=== PATIENT | male | born 1970 | race African-American/Black ===

== ENCOUNTER 2018-01-30 11:30 | Emergency (ER) | payer OTHER ==
--- NOTE | 2018-01-30 11:44 | NUR ---
Patient does not wish to proceed with medical care recommended by Dr. MONTEMAYOR. Patient given information related to possible complications, up to and including , which could occur as a result of leaving the hospital at this time. Patient verbalizes understanding of risks involved due to leaving against medical advice. Patient has signed AMA form.
== END 2018-01-30 11:45 | disposition left against medical advice (07) ==
LOC: ER 11:38
DX: Z53.21 Procedure and treatment not carried out due to patient leaving prior to being seen by health care provider (principal)

== ENCOUNTER 2018-08-04 15:26 | Emergency (ER) | payer OTHER ==
[~2018-08-04] VITALS: Ht 177.8 cm; Wt 93.0 kg
--- NOTE | 2018-08-04 15:50 | NUR ---
aaox3, c/o n/v x 2 days , generalized pain and aches states "I have no place to go and I want to be admitted for observation". rr is even and unlabored with nad noted. skin is warm and dry. awaiting md for eval.
[2018-08-04] MEDS ORDERED: ONDANSETRON HCL/PF 4 MG/2 ML VIAL ONE (16:10)
[2018-08-04] MEDS: ONDANSETRON HCL/PF 4 MG/2 ML VIAL IVP ONE (16:15)
[2018-08-04] MEDS: IV NS 0.9% 1,000 ML BAG IV ONE (16:15)
[2018-08-04 16:18] LABS: BASOPHILS % (AUTO) 0.2 % (0.0-2.0); HEMATOCRIT 41 % (39-51); HEMOGLOBIN 13.8 g/dL (13.5-17.5); LYMPHOCYTES # (AUTO) 0.2 /CMM (0.8-4.8); LYMPHOCYTES % (AUTO) 3.4 % (20.0-44.0); MEAN CORPUSCULAR HGB CONC 33 g/dl (31.0-36.0); MEAN CORPUSCULAR VOLUME 77 fL (80-96); MONOCYTES # (AUTO) 0.2 /CMM (0.1-1.30); MONOCYTES % (AUTO) 3.3 % (2.0-12.0); NEUTROPHILS # (AUTO) 6.8 /CMM (1.8-8.9); NEUTROPHILS % (AUTO) 93.1 % (43.0-81.0); PLATELET COUNT (AUTO) 252 /CMM (150-450); RED BLOOD CELL COUNT(AUTO) 5.38 MIL/uL (4.5-6.0); WHITE BLOOD COUNT (AUTO) 7.3 K/uL (4.3-11.0)
[2018-08-04 16:26] LABS: CALCIUM, SERUM 8.8 mg/dL (8.5-10.1); CREATININE 1.2 mg/dL (0.6-1.3); POTASSIUM 3.9 mmol/L (3.5-5.1)
[2018-08-04 16:31] LABS: ALBUMIN 3.9 g/dL (3.4-5.0); BILIRUBIN,DIRECT 0.1 mg/dL (0.0-0.2); BILIRUBIN,TOTAL 0.4 mg/dL (0.2-1.0); TOTAL PROTEIN, SERUM 8.1 g/dL (6.4-8.2)
--- NOTE | 2018-08-04 16:55 | NUR ---
Social service consult requested by Dr. Leach for homelessness. Pt. is a 48 year old male who came to [facility] ER complaining of nausea and stomachache. AYDIN met with pt. bedside. Pt. is alert and oriented x 4. Pt. is cooperative and pleasant with SW during the assessment. Pt. states he was at [facility] but left due to having food poisoning. Pt. states that, " I have been poisoned [facility] the [facility] the [facility]." Pt. does not want to go back to [facility] the [facility] at this time. Pt. has been homeless for approximately two years since the of his father. Pt. appears to be paranoid and states he wants to stay in the hospital for "observation." AYDIN informed pt. that the doctor has medically cleared him and SW is here to assist with the discharge plan. Pt. has his own car and has been sleeping in his car at times. Pt. is linked to services at [facility] and [facility] and has his section 8 voucher. Pt. states he has his SSI in the amount of $931.00. AYDIN offered pt. list of sober livings per his request and independent living. AYDIN gave him the contact number for [facility] and encouraged pt. to call while SW is present. Pt. informed SW he will call once he leaves that hospital. Pt. states he is able to afford $600 per month in rent. AYDIN also gave pt. list of [facility] [phone] that have shelters outside of [facility]. Pt. accepted all the given resources. Pt. signed Homeless patient Waiver form. Copy of form is placed in the chart. AYDIN updated pt's DEMETRIUS Herrmann and Dr. Leach regarding pt's discharge plan.
[2018-08-04] MEDS ORDERED: KETOROLAC TROMETHAMINE INJ 30 MG/ML VIAL ONE (17:15)
[2018-08-04] MEDS: KETOROLAC TROMETHAMINE INJ 30 MG/ML VIAL IV ONE (17:23)
--- NOTE | 2018-08-04 17:30 | NUR ---
IV removed. Catheter intact and site benign. Pressure and 4x4 applied to site. No bleeding noted.Patient discharged to home in stable condition. Written and verbal after care instructions given. Patient verbalizes understanding of instruction.
[2018-08-04 17:32] VITALS: BP 145/91
== END 2018-08-04 17:33 | disposition home or self-care (01) ==
LOC: ER 15:27
DX: B34.9 Viral infection, unspecified (principal); E86.0 Dehydration; R11.2 Nausea with vomiting, unspecified; R10.10 Upper abdominal pain, unspecified; I10 Essential (primary) hypertension; Z59.0 Homelessness
CPT/HCPCS: 36415; 80048-TC; 80076-TC; 83690-TC; 85025-TC; 87400; G0480; J1885; J2405; J7030

== ENCOUNTER 2018-09-21 10:42 | Emergency (ER) | payer OTHER ==
[~2018-09-21] VITALS: Ht 177.8 cm; Wt 86.2 kg
--- NOTE | 2018-09-21 11:00 | NUR ---
patient presented to the ER c/o lip swelling since last night. on room air, breathing evenly and unlabored. connected to the monitor, and pulse ox. kept comfortable, will continue to monitor accordingly.
[2018-09-21] MEDS ORDERED: predniSONE 20 MG TABLET PO ONE (11:30)
[2018-09-21] MEDS ORDERED: diphenhydrAMINE HCL 25 MG CAPSULE PO ONE (11:30)
[2018-09-21] MEDS ORDERED: FAMOTIDINE (20 MG) 20 MG TABLET PO ONE (11:30)
[2018-09-21] MEDS ORDERED: predniSONE 20 MG TABLET ONE (11:37)
[2018-09-21] MEDS ORDERED: FAMOTIDINE (20 MG) 20 MG TABLET ONE (11:37)
[2018-09-21] MEDS ORDERED: diphenhydrAMINE HCL 25 MG CAPSULE ONE (11:37)
--- NOTE | 2018-09-21 12:05 | NUR ---
PATIENT IN BED, NAD, VSS. LIPS STILL SWOLLEN. WILL CONTINUE TO MONITOR.
--- NOTE | 2018-09-21 12:26 | NUR ---
Patient discharged to home in stable condition. Written and verbal after care instructions given. Patient verbalizes understanding of instruction.
[2018-09-21 12:28] VITALS: BP 157/89
== END 2018-09-21 12:36 | disposition home or self-care (01) ==
LOC: ER 10:47
DX: T78.3XXA Angioneurotic edema, initial encounter (principal); T46.4X5A Adverse effect of angiotensin-converting-enzyme inhibitors, initial encounter; I10 Essential (primary) hypertension
CPT/HCPCS: Q0163

== ENCOUNTER 2018-09-28 12:15 | Emergency (ER) | payer OTHER ==
[~2018-09-28] VITALS: Ht 177.8 cm; Wt 86.2 kg
--- NOTE | 2018-09-28 12:23 | NUR ---
CALLED FOR TRIAGE NOT IN THE WAITING ROOM.
--- NOTE | 2018-09-28 12:50 | NUR ---
PT BIB SELF C/O BACK PAIN WORST TODAY 9/10 PAIN SCALE, PT IS AAOX3, NOT IN RESPIRATORY DISTRESS, V/S STABLE, KEPT RESTED AND COMFORTABLE.
--- NOTE | 2018-09-28 13:59 | NUR ---
REFERED PT TO DR. HERNANDEZ PT IS WAITING FOR 2 HRS AT ER BED 9.
[2018-09-28] MEDS ORDERED: IV NS 0.9% 1,000 ML BAG IV ONE (14:30)
--- NOTE | 2018-09-28 14:30 | NUR ---
URINE SPECIMEN COLLECTED AND SENT TO LAB.
--- NOTE | 2018-09-28 14:35 | NUR ---
DR. NOGUERA AT BEDSIDE FOR EVAL.
--- NOTE | 2018-09-28 14:40 | NUR ---
IV LINE ESTABLISHED, LABS DRAWNED AND SENT TO LAB. AWAITING RESULTS.
[2018-09-28 14:41] LABS: BASOPHILS % (AUTO) 0.5 % (0.0-2.0); EOSINOPHILS % (AUTO) 0.9 % (0.0-6.0); HEMATOCRIT 43 % (39-51); HEMOGLOBIN 14.3 g/dL (13.5-17.5); LYMPHOCYTES # (AUTO) 1.5 /CMM (0.8-4.8); LYMPHOCYTES % (AUTO) 22.7 % (20.0-44.0); MEAN CORPUSCULAR HGB CONC 33 g/dl (31.0-36.0); MEAN CORPUSCULAR VOLUME 78 fL (80-96); MONOCYTES # (AUTO) 0.5 /CMM (0.1-1.30); MONOCYTES % (AUTO) 7.3 % (2.0-12.0); NEUTROPHILS # (AUTO) 4.4 /CMM (1.8-8.9); NEUTROPHILS % (AUTO) 68.6 % (43.0-81.0); PLATELET COUNT (AUTO) 274 /CMM (150-450); WHITE BLOOD COUNT (AUTO) 6.5 K/uL (4.3-11.0)
[2018-09-28 14:47] LABS: APPEARANCE,URINE Clear (CLEAR); BILIRUBIN,URINE SMALL (NEGATIVE); BLOOD, URINE Negative Ery/uL (NEGATIVE); COLOR,URINE Yellow (YELLOW); KETONES,URINE Trace (NEGATIVE); LEUKOCYTE ESTERASE ,URINE Negative (NEGATIVE); NITRITE, URINE Negative (NEGATIVE); PH,URINE 5.5 (5.0-8.0); PROTEIN,URINE Trace mg/dl (NEGATIVE); UGLUCOSE Negative (NEGATIVE); UROBILINOGEN,URINE 0.2 EU/dL (0.2)
[2018-09-28 14:56] LABS: ALBUMIN 4.4 g/dL (3.4-5.0); BACTERIA,URINE Few /HPF (None Seen); BILIRUBIN,DIRECT 0.1 mg/dL (0.0-0.2); BILIRUBIN,TOTAL 0.5 mg/dL (0.2-1.0); CALCIUM, SERUM 9.5 mg/dL (8.5-10.1); POTASSIUM 3.9 mmol/L (3.5-5.1); RBC,URINE 0-3 /HPF (0-2); SQUAMOUS EPITHELIAL CELL,UR Moderate /HPF (None Seen); TOTAL PROTEIN, SERUM 8.2 g/dL (6.4-8.2)
--- NOTE | 2018-09-28 15:16 | NUR ---
PT IS BACK FROM THE CT SCAN.
[2018-09-28 15:18] LABS: CREATINE KINASE, TOTAL 208 U/L (39-308); THYROID STIMULATING HORMONE 1.437 uIU/mL (0.358-3.74)
[2018-09-28 15:48] LABS: ALCOHOL, BLOOD < 3 mg/dL (0-0)
[2018-09-28] MEDS ORDERED: CEFTRIAXONE 1GM BAG (ER ONLY) 1 GM/50 ML PIGGYBACK IV ONE (16:30)
[2018-09-28] MEDS ORDERED: CEFTRIAXONE 1GM BAG (ER ONLY) 50 ML IV ONE (16:42)
[2018-09-28] MEDS ORDERED: hydrALAZINE HCL IV 20 MG VIAL IV ONE (18:30)
[2018-09-28] MEDS ORDERED: hydrALAZINE HCL IV 20 MG VIAL ONE (18:39)
--- NOTE | 2018-09-28 18:48 | NUR ---
PT IS MEDICALLY CLEARED BY DR. NOGUERA, AWAITING CAFETERIA MANAGER FOR RESOURCES.
--- NOTE | 2018-09-28 19:38 | NUR ---
REPORT GIVEN TO DEMETRIUS PRITCHETT FOR TONI.
--- NOTE | 2018-09-28 19:39 | NUR ---
RECEIVED REPORT FROM DEMETRIUS ANN FOR TONI. PT RESTING IN BED WITH NO S/S OF ACUTE DISTRESS NOTED
--- NOTE | 2018-09-28 21:38 | NUR ---
Patient discharged to home in stable condition. Written and verbal after care instructions given. Patient verbalizes understanding of instruction.IV removed. Catheter intact and site benign. Pressure and 4x4 applied to site. No bleeding noted. PT WAS INFORMED TO AWAIT GEOCHEMIST IN THE WAITING ROOM. MD AWARE. PT VERBALIZED UNDERSTAING AND AMBULATED OUT TO WAITING ROOM WITH STEADY GAIT NOTED.
[2018-09-28 21:40] VITALS: BP 144/88
--- NOTE | 2018-09-29 08:34 | NUR ---
AYDIN received a call from Rola in admitting informing AYDIN that a pt. that was discharged from ED is awaiting for a SW. AYDIN met with pt. in the lobby. Pt. is alert and oriented x 4. Pt. came to ED requesting to speak with AYDIN. Pt. is ambulatory with a steady gait. Pt. requested with AYDIN if she can assist him with paying for his parking ticket. AYDIN informed pt. that she is not able to do that. Pt. states he is linked with services with [facility]. Pt. is homeless. AYDIN informed pt. to speak with his manager wind at [facility] to inquire if he can assist with the ticket. Pt. requested for AYDIN to contact Elijah at [facility]. AYDIN contacted [facility] and asked to speak with Elijah. AYDIN was informed that Elijah was not in the office as of yet. AYDIN informed pt. to go to [facility] directly and speak with his manager wind. Pt's manager wind is currently assisting pt. in getting into a transitional housing program. Pt. was given [facility], [facility] Homeless Resource Directory, Mental health and health clinic referrals in the ED prior to his discharge last night.
== END 2018-09-28 21:42 | disposition home or self-care (01) ==
LOC: ER 12:16
DX: M54.9 Dorsalgia, unspecified (principal); R41.82 Altered mental status, unspecified; I10 Essential (primary) hypertension; F12.10 Cannabis abuse, uncomplicated; Z59.0 Homelessness
CPT/HCPCS: 36415; 70450; 71045; 74176; 80048; 80076; 80305; 80307; 80329; 81001; 82550; 82962; 83690; 84443; 84484; 85025; 85730; 87086; 93005; 96361; 96365; 96367; 99284; A4606; G0480; J0360; J0696; 81000-TC

== ENCOUNTER 2018-10-05 07:17 | Emergency (ER) | payer OTHER ==
[~2018-10-05] VITALS: Ht 170.2 cm; Wt 89.8 kg
--- NOTE | 2018-10-05 07:30 | NUR ---
PT SELF PRESENTS TO ED, ANXIOUS APPEARING STATING, "I CANT WALK AND I FEEL LIKE IM HAVING A HEART ATTACK" PT GOWNED AND PLACED ON MONITOR. NSR ON 3 LEADS. AWAITING MD VARGAS.
--- NOTE | 2018-10-05 07:33 | NUR ---
DR GARSIA AT BEDSIDE FOR EVAL.
[2018-10-05] MEDS ORDERED: ASPIRIN 325 MG TABLET ONE (07:36)
[2018-10-05] MEDS ORDERED: ASPIRIN 325 MG TABLET PO ONE (08:00)
--- NOTE | 2018-10-05 08:53 | NUR ---
PT STILL REFUSING TO HAVE HIS BLOOD DRAWN.
--- NOTE | 2018-10-05 08:57 | NUR ---
CELL RELINER AT BEDSIDE FOR BLOOD DRAW.
[2018-10-05 09:06] LABS: BASOPHILS % (AUTO) 0.5 % (0.0-2.0); EOSINOPHILS % (AUTO) 0.5 % (0.0-6.0); HEMATOCRIT 43 % (39-51); LYMPHOCYTES # (AUTO) 1.2 /CMM (0.8-4.8); LYMPHOCYTES % (AUTO) 23.3 % (20.0-44.0); MEAN CORPUSCULAR HGB CONC 33 g/dl (31.0-36.0); MEAN CORPUSCULAR VOLUME 77 fL (80-96); MONOCYTES # (AUTO) 0.3 /CMM (0.1-1.30); MONOCYTES % (AUTO) 5.3 % (2.0-12.0); NEUTROPHILS # (AUTO) 3.6 /CMM (1.8-8.9); NEUTROPHILS % (AUTO) 70.4 % (43.0-81.0); PLATELET COUNT (AUTO) 248 /CMM (150-450); RED BLOOD CELL COUNT(AUTO) 5.55 MIL/uL (4.5-6.0); WHITE BLOOD COUNT (AUTO) 5.2 K/uL (4.3-11.0)
[2018-10-05] MEDS ORDERED: LORAZEPAM 1 MG TABLET ONE (09:08)
[2018-10-05 09:14] LABS: CALCIUM, SERUM 9.5 mg/dL (8.5-10.1); CARBON DIOXIDE 27 mmol/L (21-32); CHLORIDE 103 mmol/L (98-107); GLUCOSE 93 mg/dL (74-106); POTASSIUM 3.5 mmol/L (3.5-5.1); SODIUM SERUM 139 mmol/L (136-145); UREA NITROGEN, BLOOD 11 mg/dL (7-18)
[2018-10-05] MEDS ORDERED: LORAZEPAM 1 MG TABLET PO ONE (09:30)
[2018-10-05 09:56] LABS: LYMPHOCYTES % (MANUAL) 24 % (16-48); MONOCYTES % (MANUAL) 10 % (0-11.0); NEUTROPHILS % (MANUAL) 66 (42-76)
--- NOTE | 2018-10-05 11:34 | NUR ---
PT IS MEDICALLY AND PSYCH CLEARED. REFUSING TO SIGN AND LEAVE ED. PT ESCORTED BY SECURITY TO WAITING ROOM.
[2018-10-05 12:02] VITALS: BP 146/99
== END 2018-10-05 11:45 | disposition home or self-care (01) ==
LOC: ER 07:18
DX: R07.89 Other chest pain (principal); F29 Unspecified psychosis not due to a substance or known physiological condition; I10 Essential (primary) hypertension; F12.10 Cannabis abuse, uncomplicated
CPT/HCPCS: 36415; 71045; 80048; 80305; 84484; 85025; 93005; 99284; A4606

== ENCOUNTER 2018-11-29 01:22 | Emergency (ER) | payer OTHER ==
[~2018-11-29] VITALS: Ht 177.8 cm; Wt 86.6 kg
--- NOTE | 2018-11-29 01:26 | NUR ---
TO ER BED 4. WHEELED IN BY WHEELCHAIR. AAOX2. TACHYPNEIC. CAME IN FOR C/O CHEST PAIN 05/11 PT STATES THAT THE PAIN IS RADIATING TO HIS HEAD. HE ALSO STATES THAT HE IS DIZZY AND FEELS THAT HE WAS POISONED. PT STATES THAT HE VOMITTED ONCE BEFORE COMING IN TO THE HOSPITAL. AT BEDSIDE FOR SAM.
[2018-11-29] MEDS ORDERED: NITROGLYCERIN PACKET 1 GM PACKET ONE (01:40)
[2018-11-29] MEDS ORDERED: ASPIRIN 81 MG TAB.CHEW ONE (01:40)
[2018-11-29] MEDS ORDERED: LORAZEPAM 1 MG TABLET ONE (01:40)
--- NOTE | 2018-11-29 01:49 | NUR ---
TECH AT BEDSIDE FOR EKG
--- NOTE | 2018-11-29 01:52 | NUR ---
CURRICULUM DIRECTOR AT [facility] FOR BLOOD DRAW
[2018-11-29] MEDS ORDERED: oxyCODONE/APAP (5/325 MG) 1 UDTAB TABLET ONE (01:55)
[2018-11-29] MEDS ORDERED: oxyCODONE/APAP (5/325 MG) 1 UDTAB TABLET PO ONE (02:00)
[2018-11-29] MEDS ORDERED: LORAZEPAM 1 MG TABLET PO ONE (02:00)
[2018-11-29] MEDS ORDERED: ASPIRIN 81 MG TAB.CHEW PO ONE (02:00)
[2018-11-29] MEDS ORDERED: NITROGLYCERIN PACKET 1 GM PACKET TD ONE (02:00)
[2018-11-29 02:05] LABS: BASOPHILS % (AUTO) 0.4 % (0.0-2.0); EOSINOPHILS % (AUTO) 0.8 % (0.0-6.0); HEMATOCRIT 38 % (39-51); HEMOGLOBIN 12.4 g/dL (13.5-17.5); LYMPHOCYTES # (AUTO) 1.4 /CMM (0.8-4.8); LYMPHOCYTES % (AUTO) 20.5 % (20.0-44.0); MEAN CORPUSCULAR HGB CONC 33 g/dl (31.0-36.0); MEAN CORPUSCULAR VOLUME 77 fL (80-96); MONOCYTES # (AUTO) 0.4 /CMM (0.1-1.30); MONOCYTES % (AUTO) 6.4 % (2.0-12.0); NEUTROPHILS # (AUTO) 4.8 /CMM (1.8-8.9); NEUTROPHILS % (AUTO) 71.9 % (43.0-81.0); PLATELET COUNT (AUTO) 246 /CMM (150-450); RED BLOOD CELL COUNT(AUTO) 4.95 MIL/uL (4.5-6.0); WHITE BLOOD COUNT (AUTO) 6.7 K/uL (4.3-11.0)
--- NOTE | 2018-11-29 02:09 | NUR ---
XRAY AT BEDSIDE
[2018-11-29 02:13] LABS: ALANINE AMINOTRANSFERASE 19 U/L (12-78); ALBUMIN 3.7 g/dL (3.4-5.0); ALKALINE PHOSPHATASE 71 U/L (46-116); ASPARTATE AMINOTRANSFERASE 15 U/L (15-37); BILIRUBIN,DIRECT 0.1 mg/dL (0.0-0.2); BILIRUBIN,TOTAL 0.3 mg/dL (0.2-1.0); CALCIUM, SERUM 8.6 mg/dL (8.5-10.1); CARBON DIOXIDE 29 mmol/L (21-32); CHLORIDE 106 mmol/L (98-107); CREATININE 1.1 mg/dL (0.6-1.3); GLUCOSE 118 mg/dL (74-106); POTASSIUM 3.5 mmol/L (3.5-5.1); SODIUM SERUM 142 mmol/L (136-145); UREA NITROGEN, BLOOD 14 mg/dL (7-18)
--- NOTE | 2018-11-29 02:41 | NUR ---
CALLED [facility]: CXR
--- NOTE | 2018-11-29 02:54 | NUR ---
PT STATES THAT HIS CHEST PAIN IN GONE. PT IS STILL COMPLAINING OF HEADACHE.
--- NOTE | 2018-11-29 04:20 | NUR ---
APARTMENT LEASING CONSULTANT AT [facility] FOR BLOOD DRAW
--- NOTE | 2018-11-29 04:30 | NUR ---
PT SLEEPING IN BED. EASILY ARROUSED BY VERBAL STIMULI. NO DISTRESS NOTED.
[2018-11-29 05:41] VITALS: BP 126/60
--- NOTE | 2018-11-29 05:44 | NUR ---
PT DOES NOT REQUIRE TAP CARD, PT HAS OWN VEHICLE
--- NOTE | 2018-11-29 05:45 | NUR ---
Patient discharged to home in stable condition. Written and verbal after care instructions given. Patient verbalizes understanding of instruction.
--- NOTE | 2018-11-29 05:46 | NUR ---
PT IS HOMELESS. WAIVER IS SIGNED. PT IS IN LOBBY WAITING FOR BINDERY HELPER.
--- NOTE | 2018-11-29 11:39 | NUR ---
Social service consult requested by discharged pt. Pt. initially visited the ER in the morning for chest pain and was then discharged. SW was notified that pt. was in the ER waiting room requesting a consult at 10:18am. SW met with former pt. in the ER waiting room. Pt. was alert and oriented x 4. Pt. is requesting further housing services. Pt. states he has received transitional housing services from [facility] [id number]. [place], [place] [id number] , [facility] [address] [address], and [facility] [address] [place], [place] [address] . Former pt. states that he has a Section 8 voucher for low-income housing. Former pt. is requesting permanent housing referrals. SW provided former pt. with housing agencies to help him with placement, including [facility] at [address] [place] [address] ( . Former pt. states that he was working with a graphic specialist at [facility] that was providing on-going case management support, but stopped once he was no longer a transitional housing resident. SW encouraged former pt. to call [facility] and reconnect with his manager ed. Former pt. called [facility] while SW was present and spoke with the Chief Impact Officer Walter Hickey. Walter Hickey was receptive to former pt. and sounded accounted with him. No other services requested by former pt. at this time. housekeeper/custodian/laundry worker provided the following homeless alf referral to client, if needed in the future: [facility] [address] [place], [place] [address] . [facility] [address] [place] [address] . And the [facility] Homeless Resource Directory. Per ER notes, homeless waiver was signed by pt. prior to discharge. No other services needed at this time. SW is available if needed.
== END 2018-11-29 05:47 | disposition home or self-care (01) ==
LOC: ER 01:23
DX: R07.89 Other chest pain (principal); I10 Essential (primary) hypertension
CPT/HCPCS: 36415; 71045-TC; 80048-TC; 80076-TC; 84484-TC; 85025-TC

== ENCOUNTER 2018-11-29 15:13 | Emergency (ER) | payer OTHER ==
[~2018-11-29] VITALS: Ht 177.8 cm; Wt 87.5 kg
--- NOTE | 2018-11-29 16:20 | NUR ---
RN NOTES PATIENT RECIEVED AWAKE ALERT AND VERBALLY RESPONSIVE, ABLE TO MAKE NEEDS KNOWN, RESPIRATIONS EVEN AND UNLABORED
[2018-11-29 17:06] LABS: BASOPHILS % (AUTO) 0.2 % (0.0-2.0); EOSINOPHILS % (AUTO) 0.5 % (0.0-6.0); HEMATOCRIT 38 % (39-51); HEMOGLOBIN 12.5 g/dL (13.5-17.5); LYMPHOCYTES # (AUTO) 1.2 /CMM (0.8-4.8); LYMPHOCYTES % (AUTO) 20.8 % (20.0-44.0); MEAN CORPUSCULAR HGB CONC 33 g/dl (31.0-36.0); MEAN CORPUSCULAR VOLUME 77 fL (80-96); MONOCYTES # (AUTO) 0.3 /CMM (0.1-1.30); NEUTROPHILS # (AUTO) 4.1 /CMM (1.8-8.9); NEUTROPHILS % (AUTO) 72.5 % (43.0-81.0); PLATELET COUNT (AUTO) 235 /CMM (150-450); RED BLOOD CELL COUNT(AUTO) 4.92 MIL/uL (4.5-6.0); WHITE BLOOD COUNT (AUTO) 5.6 K/uL (4.3-11.0)
[2018-11-29 17:25] LABS: CALCIUM, SERUM 8.6 mg/dL (8.5-10.1); CARBON DIOXIDE 30 mmol/L (21-32); CHLORIDE 105 mmol/L (98-107); GLUCOSE 91 mg/dL (74-106); POTASSIUM 3.7 mmol/L (3.5-5.1); SODIUM SERUM 141 mmol/L (136-145); UREA NITROGEN, BLOOD 12 mg/dL (7-18)
[2018-11-29 17:30] LABS: ALANINE AMINOTRANSFERASE 19 U/L (12-78); ALBUMIN 3.9 g/dL (3.4-5.0); ALKALINE PHOSPHATASE 48 U/L (46-116); ASPARTATE AMINOTRANSFERASE 13 U/L (15-37); BILIRUBIN,DIRECT 0.1 mg/dL (0.0-0.2); BILIRUBIN,TOTAL 0.3 mg/dL (0.2-1.0); TOTAL PROTEIN, SERUM 7.2 g/dL (6.4-8.2)
[2018-11-29] MEDS ORDERED: OLANZAPINE 5 MG TABLET PO ONE (18:00)
[2018-11-29] MEDS ORDERED: LORAZEPAM 1 MG TABLET PO ONE (18:00)
[2018-11-29 18:07] LABS: ACETAMINOPHEN 0 ug/ml (10-30); ALCOHOL, BLOOD < 3 mg/dL (0-0); SALICYLATE 1.4 mg/dL (2.8-20.0)
[2018-11-29] MEDS ORDERED: LORAZEPAM 1 MG TABLET ONE (18:08)
[2018-11-29] MEDS ORDERED: OLANZAPINE 5 MG TABLET ONE (18:08)
[2018-11-29 20:04] LABS: APPEARANCE,URINE Clear (CLEAR); BILIRUBIN,URINE Negative (NEGATIVE); BLOOD, URINE Negative Ery/uL (NEGATIVE); COLOR,URINE Yellow (YELLOW); KETONES,URINE Negative (NEGATIVE); LEUKOCYTE ESTERASE ,URINE Negative (NEGATIVE); NITRITE, URINE Negative (NEGATIVE); PH,URINE 5.5 (5.0-8.0); PROTEIN,URINE Negative (NEGATIVE); UGLUCOSE Negative (NEGATIVE); UROBILINOGEN,URINE 0.2 EU/dL (0.2)
--- NOTE | 2018-11-29 22:38 | NUR ---
PT OK TO DISCHARGE PER WALESKA OZUNA. Patient discharged to home in stable condition. Written and verbal after care instructions given. Patient verbalizes understanding of instruction.Patient is awake and alert to self, day, and place. Pt ambulatory with a steady gait. Patient given written and verbal discharge instructions. Refuses offer of long-term placement. Pt refusing to sign homeless waiver. Patient given list of available shelters in surrounding area.
[2018-11-29 22:53] VITALS: BP 145/92
== END 2018-11-29 22:55 | disposition home or self-care (01) ==
LOC: ER 15:17
DX: R07.89 Other chest pain (principal); G43.909 Migraine, unspecified, not intractable, without status migrainosus; I10 Essential (primary) hypertension; Z76.5 Malingerer [conscious simulation]
CPT/HCPCS: 36415; 71045; 80048; 80076; 80305; 80307; 80329; 81001; 84484; 85025; 93005; 99284; G0480; 81000-TC

== ENCOUNTER 2018-12-06 08:22 | Emergency (ER) | payer OTHER ==
[~2018-12-06] VITALS: Ht 177.8 cm; Wt 86.2 kg
--- NOTE | 2018-12-06 08:25 | NUR ---
CALLED IN WAITING ROOM, PT STATES NOT READY TO COME IN.
[2018-12-06 08:33] VITALS: BP 160/99
--- NOTE | 2018-12-06 09:58 | NUR ---
COMMISSIONED DEFENCE FORCE OFFICER CALLED AND COMING
--- NOTE | 2018-12-06 10:10 | NUR ---
NING FOOD MANAGER SPOKE WITH THE PATIENT.
--- NOTE | 2018-12-06 10:24 | NUR ---
PATIENT A/OX3, RESTLESS. DR. MONTEMAYOR EXPLAINED TO HIM HE'S MEDICALLY CLEARED, DISCHARGE PAPERWORKS PROVIDED, TRIED TO EXPLAIN INSTRUCTIONS BUT PATIENT REFUSED TO LISTEN, AND STILL REFUSED TO LEAVE. SECURITY CALLED AND ASSISTED PATIENT OUT OF ER TO HIS CAR. PATIENT REFUSED TO SIGN ANY PAPERWORKS.
== END 2018-12-06 10:26 | disposition home or self-care (01) ==
LOC: ER 08:27
DX: R42 Dizziness and giddiness (principal); H60.90 Unspecified otitis externa, unspecified ear; G43.909 Migraine, unspecified, not intractable, without status migrainosus; F31.9 Bipolar disorder, unspecified; F41.9 Anxiety disorder, unspecified; I10 Essential (primary) hypertension; Z59.0 Homelessness

== ENCOUNTER 2018-12-14 15:42 | Emergency (ER) | payer OTHER ==
[~2018-12-14] VITALS: Ht 177.8 cm; Wt 86.2 kg
--- NOTE | 2018-12-14 18:10 | NUR ---
Patient discharged to home in stable condition. Written and verbal after care instructions given. Patient verbalizes understanding of instruction.Patient given written and verbal discharge instructions. Patient verbalizes understanding of instructions. Patient is ambulatory with steady gait. Refuses offer of intermediate placement. Patient given list of available shelters in surrounding area.
[2018-12-14 18:11] VITALS: BP 125/66
== END 2018-12-14 18:10 | disposition home or self-care (01) ==
LOC: ER 15:44
DX: G43.909 Migraine, unspecified, not intractable, without status migrainosus (principal); H50.9 Unspecified strabismus; I10 Essential (primary) hypertension; F32.9 Major depressive disorder, single episode, unspecified; Z59.0 Homelessness

== ENCOUNTER 2019-01-03 15:04 | Emergency (ER) | payer OTHER ==
[~2019-01-03] VITALS: Ht 182.9 cm; Wt 86.2 kg
--- NOTE | 2019-01-03 15:25 | NUR ---
called for triage not in the waiting room
--- NOTE | 2019-01-03 15:32 | NUR ---
called for triage not in the waiting room
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
[2019-01-03 16:55] VITALS: BP 138/78
--- NOTE | 2019-01-03 16:55 | NUR ---
PT REFUSED SEEING PICKLE SOLUTION MAKER AND STATED THAT HE KNOWS ALL THE GOOD PLACES [place] GO [place]. PT REFUSED SENIOR LIVING INFORMATION, BUT TOOK THE RESOURCE LIST.
--- NOTE | 2019-01-03 16:55 | NUR ---
Patient discharged to home in stable condition. Written and verbal after care instructions given. Patient verbalizes understanding of instruction AND RX. PT WAS INSTRUCTED ON PHARMACIES THAT HAS REDUCED RATE RX. PT ALSO REC'D THE HOMELESS RESOURCE PACKET. PT REC'D A MEAL PRIOR TO DISCHARGE. PT AMBULATED OUT WITH A STEADY GAIT. VSS.
== END 2019-01-03 16:55 | disposition home or self-care (01) ==
LOC: ER 15:06
DX: S80.869A Insect bite (nonvenomous), unspecified lower leg, initial encounter (principal); J32.9 Chronic sinusitis, unspecified; M54.2 Cervicalgia; F31.9 Bipolar disorder, unspecified; G43.909 Migraine, unspecified, not intractable, without status migrainosus; I10 Essential (primary) hypertension; Z59.0 Homelessness; W57.XXXA Bitten or stung by nonvenomous insect and other nonvenomous arthropods, initial encounter; Y93.89 Activity, other specified; Y92.89 Other specified places as the place of occurrence of the external cause; Y99.8 Other external cause status
CPT/HCPCS: Z7502

== ENCOUNTER 2019-01-06 23:27 | Emergency (ER) | payer OTHER ==
[~2019-01-06] VITALS: Ht 177.8 cm; Wt 86.2 kg
[2019-01-07 02:34] VITALS: BP 134/88
== END 2019-01-07 02:44 | disposition home or self-care (01) ==
LOC: ER 23:40
DX: R42 Dizziness and giddiness (principal); F41.9 Anxiety disorder, unspecified; G43.909 Migraine, unspecified, not intractable, without status migrainosus; I10 Essential (primary) hypertension; F31.9 Bipolar disorder, unspecified; Z59.0 Homelessness
CPT/HCPCS: 71045-TC

== ENCOUNTER 2019-02-19 22:17 | Emergency (ER) | payer OTHER ==
[~2019-02-19] VITALS: Ht 182.9 cm; Wt 90.7 kg
[2019-02-19] MEDS ORDERED: diphenhydrAMINE HCL 25 MG CAPSULE PO ONE (23:00)
[2019-02-19] MEDS ORDERED: diphenhydrAMINE HCL 50 MG CAPSULE ONE (23:00)
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
[2019-02-20] MEDS ORDERED: ONDANSETRON 4 MG TAB.RAPDIS ONE
[2019-02-20] MEDS ORDERED: ONDANSETRON 4 MG TAB.RAPDIS PO ONE (00:30)
--- NOTE | 2019-02-20 00:40 | NUR ---
Pt C/O NAUSEA & SOME ABD PROBLEMS. ADMINISTERED ZOFRAN 4MG ODT PER MD's ORDER.
[2019-02-20] MEDS ORDERED: HYDROCODONE/APAP 5/325MG 1 EACH TABLET ONE (03:26)
[2019-02-20] MEDS ORDERED: HYDROCODONE/APAP 5/325MG 1 EACH TABLET PO ONE (03:30)
--- NOTE | 2019-02-20 03:30 | NUR ---
Pt C/O 03/11 LOWER ABD PAIN. BP HAS INCREASED TO 162/103. INFORMED MD. ORDERED NORCO-5. WILL CARRY OUT ORDER.
--- NOTE | 2019-02-20 05:04 | NUR ---
Patient discharged to home in stable condition. Written and verbal after care instructions given. Instructed patient to not drive any vehicle. Patient refused for last VS to be taken. Patient stated he feels fine and just wants to leave. Patient verbalizes understanding of instruction. Patient left facility with steady gait. No s/s of acute distress or sob noted. No IV access on pt. No ID band.
[2019-02-20 05:28] VITALS: BP 162/103
== END 2019-02-20 05:00 | disposition home or self-care (01) ==
LOC: ER 22:19
DX: T14.8XXA Other injury of unspecified body region, initial encounter (principal); G43.909 Migraine, unspecified, not intractable, without status migrainosus; I10 Essential (primary) hypertension; F32.9 Major depressive disorder, single episode, unspecified; Z59.0 Homelessness; W57.XXXA Bitten or stung by nonvenomous insect and other nonvenomous arthropods, initial encounter; Y93.89 Activity, other specified; Y92.89 Other specified places as the place of occurrence of the external cause; Y99.8 Other external cause status
CPT/HCPCS: 99284; Q0162; Q0163

== ENCOUNTER 2019-02-21 11:07 | Emergency (ER) | payer OTHER ==
[~2019-02-21] VITALS: Ht 182.9 cm; Wt 102.1 kg
--- NOTE | 2019-02-21 11:20 | NUR ---
PATIENT DELORIS RA 102 Suicidal Ideation "Im gonna kill myself". escorted to ER bed 10
[2019-02-21] MEDS ORDERED: LORAZEPAM 1 MG TABLET PO ONE (11:30)
[2019-02-21] MEDS ORDERED: OLANZAPINE 5 MG TABLET PO ONE (11:30)
[2019-02-21 11:32] LABS: BASOPHILS % (AUTO) 0.2 % (0.0-2.0); EOSINOPHILS % (AUTO) 0.3 % (0.0-6.0); HEMATOCRIT 38 % (39-51); HEMOGLOBIN 12.8 g/dL (13.5-17.5); LYMPHOCYTES % (AUTO) 22.9 % (20.0-44.0); MEAN CORPUSCULAR HGB CONC 34 g/dl (31.0-36.0); MEAN CORPUSCULAR VOLUME 78 fL (80-96); MONOCYTES # (AUTO) 0.3 /CMM (0.1-1.30); NEUTROPHILS % (AUTO) 69.6 % (43.0-81.0); PLATELET COUNT (AUTO) 217 /CMM (150-450); RED BLOOD CELL COUNT(AUTO) 4.89 MIL/uL (4.5-6.0); WHITE BLOOD COUNT (AUTO) 4.4 K/uL (4.3-11.0)
[2019-02-21] MEDS ORDERED: OLANZAPINE 5 MG TABLET ONE (11:34)
[2019-02-21] MEDS ORDERED: LORAZEPAM 1 MG TABLET ONE (11:34)
[2019-02-21 11:40] LABS: CALCIUM, SERUM 8.8 mg/dL (8.5-10.1); CARBON DIOXIDE 27 mmol/L (21-32); CHLORIDE 105 mmol/L (98-107); GLUCOSE 105 mg/dL (74-106); POTASSIUM 3.4 mmol/L (3.5-5.1); SODIUM SERUM 138 mmol/L (136-145); UREA NITROGEN, BLOOD 21 mg/dL (7-18)
[2019-02-21 11:46] LABS: ALANINE AMINOTRANSFERASE 20 U/L (12-78); ALBUMIN 4.1 g/dL (3.4-5.0); ALCOHOL, BLOOD < 3 mg/dL (0-0); ALKALINE PHOSPHATASE 48 U/L (46-116); ASPARTATE AMINOTRANSFERASE 17 U/L (15-37); BILIRUBIN,DIRECT 0.1 mg/dL (0.0-0.2); BILIRUBIN,TOTAL 0.6 mg/dL (0.2-1.0); TOTAL PROTEIN, SERUM 7.4 g/dL (6.4-8.2)
--- NOTE | 2019-02-21 11:51 | NUR ---
PATIENT TOOK MEDICATIONS BUT IS KEEPING BOTH ATIVAN AND ZYPREXA TABLETS UNDER HIS TONGUE. CAROL ARAMBULA MADE AWARE. SEEN AT BEDSIDE
[2019-02-21 11:52] LABS: ACETAMINOPHEN 0 ug/ml (10-30); SALICYLATE 1.6 mg/dL (2.8-20.0)
--- NOTE | 2019-02-21 12:01 | NUR ---
ASKED PATIENT IF PATIENT WOULD BE ABLE TO PROVIDE URINE SAMPLE BUT PATIENT HYPERVERBAL, AGITATED. CAROL ARAMBULA ACCOUNT AUDITOR MADE AWARE. WILL CONTINUE TO MONITOR
--- NOTE | 2019-02-21 12:44 | NUR ---
PATIENT SLEEPING ON BED, AROUSABLE THROUGH VERBAL AND TACTILE STIMULI. NO CHANGES IN LOC NOTED. ASKED IF PATIENT IS ABLE TO PROVIDE URINE SAMPLE AND PATIENT NODDED BUT WENT BACK TO SLEEP. WILL CONTINUE TO MONITOR
--- NOTE | 2019-02-21 14:24 | NUR ---
PATIENT RESTING SLEEPING ON BED. AROUSABLE THROUGH VERBAL AND TACTILE STIMULI. STILL DOES NOT WANT TO PROVIDE URINE, MARSII CANDLEMAKER MADE AWARE. WILL CONTINUE TO MONITOR
--- NOTE | 2019-02-21 15:00 | NUR ---
PATIENT REFUSES TO HAVE VITAL SIGNS TAKEN. RISKS AND BENEFITS EXPLAIEND BUT TO NO AVAIL. ER STATOR WINDER AWARE. WILL CONTINUE TO MONITOR
--- NOTE | 2019-02-21 19:05 | NUR ---
PATIENT CONTINUES TO REFUSE TO HAVE VITAL SIGNS TAKEN. RISKS AND BENEFITS EXPLAINED BUT TO NO AVAIL. ER RESEARCH TECHNOLOGIST MADE AWARE. WILL CONTINUE TO MONITOR
--- NOTE | 2019-02-21 19:05 | NUR ---
PATIENT SLEEPING ON BED, AROUSABLE THROUGH VERBAL AND TACTILE STIMULI. NO ACUTE DISTRESS. DENIES ANY PAIN OR DISCOMFORT. PATIENT STILL REFUSES TO PROVIDE URINE AT THIS TIME AND WOUND GO BACK TO SLEEP. ER PUNCH MACHINE OPERATOR MADE AWARE. WILL CONTINUE TO MONITOR
--- NOTE | 2019-02-21 19:31 | NUR ---
REPORT GIVEN TO CLIFF ROMO FOR TONI
--- NOTE | 2019-02-21 22:29 | NUR ---
Patient is resting comfortably in bed with eyes closed. Easily aroused. VSS. will cont to monitor
--- NOTE | 2019-02-22 00:36 | NUR ---
PT SLEEPING. AROUSES EASILY. BREATHIING EVENLY. NO DISTRESS. VSS
[2019-02-22] MEDS ORDERED: LORAZEPAM INJ 2 MG/ML VIAL ONE (03:57)
[2019-02-22] MEDS ORDERED: HALOPERIDOL LACTATE INJ 5 MG/ML VIAL ONE (03:57)
[2019-02-22] MEDS ORDERED: LORAZEPAM INJ 2 MG/ML VIAL IM ONE (04:00)
[2019-02-22] MEDS ORDERED: HALOPERIDOL LACTATE INJ 5 MG/ML VIAL IM ONE (04:00)
--- NOTE | 2019-02-22 04:02 | NUR ---
PT WOKE UP W/ A VERY AGRESSIVE AND COMATIVE BEHAVIOR. CONSTANTLY SCREAMING AND YELLING OUT. ATTEMPTED TO CALM HIM DOWN BUT UNSUCCESSFUL. PT TRYING TO HIT STAFF. SPOKE TO THE MD W/ AN ORDER FOR ATIVAN AND HALDOL IM. NOTED AND CARRIED OUT.
--- NOTE | 2019-02-22 06:00 | NUR ---
urine collected and sent to lab.
[2019-02-22 06:35] LABS: APPEARANCE,URINE SL CLOUDY (CLEAR); BILIRUBIN,URINE 1+ (NEGATIVE); BLOOD, URINE NEGATIVE Ery/uL (NEGATIVE); COLOR,URINE DARK YELLO (YELLOW); KETONES,URINE 1+ (NEGATIVE); LEUKOCYTE ESTERASE ,URINE NEGATIVE (NEGATIVE); NITRITE, URINE NEGATIVE (NEGATIVE); PROTEIN,URINE NEGATIVE (NEGATIVE); UGLUCOSE NEGATIVE (NEGATIVE); UROBILINOGEN,URINE 0.2 EU/dL (0.2)
[2019-02-22 06:51] LABS: BACTERIA,URINE Few /HPF (None Seen); SQUAMOUS EPITHELIAL CELL,UR Rare /HPF (None Seen)
[2019-02-22 06:52] LABS: RBC,URINE 0-2 /HPF (0-2)
--- NOTE | 2019-02-22 07:28 | NUR ---
pt sleeping, arouses easily. breathing evenly. refussed VS check. remained on close monitoring and 1:1 supervision.
--- NOTE | 2019-02-22 08:57 | NUR ---
CALLED HERMINIA FOR PSYCH EVAL. LEFT MESSAGE.
--- NOTE | 2019-02-22 12:00 | NUR ---
Patient is resting comfortably in bed with eyes closed. Easily aroused. VSS
[2019-02-22 14:00] VITALS: BP 124/76
--- NOTE | 2019-02-22 14:00 | NUR ---
Patient is resting comfortably in bed with eyes closed. Easily aroused. VSS
--- NOTE | 2019-02-22 14:36 | NUR ---
PER SANIA AT [facility], THEY WILL CALL BACK WHEN A BED IS AVAILABLE.
--- NOTE | 2019-02-22 16:01 | NUR ---
TRANSFER TO CODI MONSON RN FOR REPORT [phone] EXT [phone] OR [phone]
--- NOTE | 2019-02-22 16:42 | NUR ---
REPORT GIVEN TO DEMETRIUS ANDERSON AT [facility] FOR CONT OF CARE.
--- NOTE | 2019-02-22 17:02 | NUR ---
[facility] ETA [id number]
[2019-02-22] MEDS ORDERED: LORAZEPAM 1 MG TABLET ONE (17:57)
[2019-02-22] MEDS ORDERED: LORAZEPAM 1 MG TABLET PO ONE (18:00)
--- NOTE | 2019-02-22 18:32 | NUR ---
PT ENROUTE TO [facility] VIA BLS FOR CONT OF CARE. PT CALM & COOPERATIVE, NAD NOTED AT THIS TIME.
== END 2019-02-22 18:36 ==
LOC: ER 11:09
DX: R45.851 Suicidal ideations (principal); G43.909 Migraine, unspecified, not intractable, without status migrainosus; F31.9 Bipolar disorder, unspecified; I10 Essential (primary) hypertension; R45.1 Restlessness and agitation; Z59.0 Homelessness
CPT/HCPCS: 36415; 80048; 80076; 80305; 80307; 80329; 81001; 85025; 96372 ×2; 99285; G0480; J1630; J2060; 81000-TC

== ENCOUNTER 2021-12-13 19:53 | Emergency (ER) | payer OTHER ==
[~2021-12-13] VITALS: Ht 177.8 cm; Wt 81.6 kg
[2021-12-13 20:30] VITALS: BP 171/107
[2021-12-13] MEDS ORDERED: TDAP [DIPH/PERTUSSIS/TET] 0.5 ML VIAL IM ONE ×2 (20:43→21:00)
== END 2021-12-13 21:38 | disposition home or self-care (01) ==
LOC: ER 20:02
DX: S01.81XA Laceration without foreign body of other part of head, initial encounter (principal); G43.909 Migraine, unspecified, not intractable, without status migrainosus; I10 Essential (primary) hypertension; F31.9 Bipolar disorder, unspecified; Z59.00 Homelessness unspecified; X58.XXXA Exposure to other specified factors, initial encounter; Y93.89 Activity, other specified; Y92.89 Other specified places as the place of occurrence of the external cause; Y99.8 Other external cause status
CPT/HCPCS: 90715

== ENCOUNTER 2022-04-15 16:08 | Emergency (ER) | payer OTHER ==
[~2022-04-15] VITALS: Ht 177.8 cm; Wt 81.6 kg
[2022-04-15 16:17] VITALS: BP 160/95
[2022-04-15] MEDS ORDERED: HYDR28.34 TP (17:17)
[2022-04-15] MEDS ORDERED: IBUP-1955 PO (17:17)
[2022-04-15] MEDS ORDERED: IBUPROFEN 600 MG TABLET ONE (17:20)
[2022-04-15] MEDS ORDERED: IBUPROFEN 600 MG TABLET PO ONE (17:30)
== END 2022-04-15 17:25 | disposition home or self-care (01) ==
LOC: ER 16:10
DX: T14.8XXA Other injury of unspecified body region, initial encounter (principal); G43.909 Migraine, unspecified, not intractable, without status migrainosus; I10 Essential (primary) hypertension; F31.9 Bipolar disorder, unspecified; Z60.2 Problems related to living alone; W57.XXXA Bitten or stung by nonvenomous insect and other nonvenomous arthropods, initial encounter; Y93.89 Activity, other specified; Y92.89 Other specified places as the place of occurrence of the external cause; Y99.8 Other external cause status

== ENCOUNTER 2022-09-30 18:08 | Emergency (ER) | payer OTHER ==
[~2022-09-30] VITALS: Ht 177.8 cm; Wt 79.4 kg
[~2022-09-30 18:08] MED LIST: HYDR28.34 TP; IBUP-1955 PO
--- NOTE | 2022-09-30 19:05 | NUR ---
pt refusing blood draw. not providing urine. Dr Pierce aware.
--- NOTE | 2022-10-01 05:33 | NUR ---
pt ok to discharge per dr scwhartz. Patient discharged to home in stable condition. Written and verbal after care instructions given. Patient verbalizes understanding of instruction.Patient is awake and alert to self, day, and place. pt ambulatory with a steady gait
[2022-10-01 05:37] VITALS: BP 139/81
== END 2022-10-01 05:37 | disposition home or self-care (01) ==
LOC: ER 18:11
DX: F15.10 Other stimulant abuse, uncomplicated (principal); G43.909 Migraine, unspecified, not intractable, without status migrainosus; I10 Essential (primary) hypertension; F33.9 Major depressive disorder, recurrent, unspecified; Z60.2 Problems related to living alone; Z79.899 Other long term (current) drug therapy

== ENCOUNTER 2022-10-04 08:03 | Emergency (ER) | payer OTHER ==
[~2022-10-04] VITALS: Ht 182.9 cm; Wt 72.6 kg
--- NOTE | 2022-10-04 08:25 | NUR ---
DELORIS HYDE39 "Homeless Bystander called for him. Psych emergency and cough". pt placed in bed and connected to monitor. vss. breathing even and unlabored. safety precautions in place. awaiting md orders.
--- NOTE | 2022-10-04 08:30 | NUR ---
HERON AT BEDSIDE FOR BLOOD DRAW.
--- NOTE | 2022-10-04 08:31 | NUR ---
covid swab collected and sent to lab
--- NOTE | 2022-10-04 08:35 | NUR ---
URINE SAMPLE COLLECTED AND SENT
[2022-10-04 08:38] LABS: BASOPHILS % (AUTO) 0.2 % (0.0-2.0); EOSINOPHILS % (AUTO) 0.6 % (0.0-6.0); HEMATOCRIT 44 % (39-51); HEMOGLOBIN 13.9 g/dL (13.5-17.5); LYMPHOCYTES # (AUTO) 1.2 K/uL (0.8-4.8); LYMPHOCYTES % (AUTO) 16.3 % (20.0-44.0); MEAN CORPUSCULAR HGB CONC 31 g/dl (31.0-36.0); MEAN CORPUSCULAR VOLUME 79 fL (80-96); MONOCYTES # (AUTO) 0.6 K/uL (0.1-1.30); MONOCYTES % (AUTO) 7.7 % (2.0-12.0); NEUTROPHILS # (AUTO) 5.6 K/uL (1.8-8.9); NEUTROPHILS % (AUTO) 75.2 % (43.0-81.0); PLATELET COUNT (AUTO) 289 K/uL (150-450); RED BLOOD CELL COUNT(AUTO) 5.63 MIL/uL (4.5-6.0); WHITE BLOOD COUNT (AUTO) 7.4 K/uL (4.3-11.0)
[2022-10-04 08:50] LABS: CALCIUM, SERUM 9.3 mg/dL (8.5-10.1); CARBON DIOXIDE 26 mmol/L (21-32); CHLORIDE 100 mmol/L (98-107); CREATININE 1.1 mg/dL (0.6-1.3); GLUCOSE 96 mg/dL (74-106); POTASSIUM 3.8 mmol/L (3.5-5.1); SODIUM SERUM 137 mmol/L (136-145); UREA NITROGEN, BLOOD 31 mg/dL (7-18)
[2022-10-04 08:56] LABS: ALANINE AMINOTRANSFERASE 50 U/L (12-78); ALKALINE PHOSPHATASE 61 U/L (46-116); ASPARTATE AMINOTRANSFERASE 66 U/L (15-37); BILIRUBIN,DIRECT 0.3 mg/dL (0.0-0.2); BILIRUBIN,TOTAL 0.9 mg/dL (0.2-1.0)
[2022-10-04 09:00] LABS: ALCOHOL, BLOOD < 3 mg/dL (0-0)
[2022-10-04 09:30] LABS: BILIRUBIN,URINE 1+ (NEGATIVE); COLOR,URINE DARK YELLOW (YELLOW); LEUKOCYTE ESTERASE ,URINE NEGATIVE (NEGATIVE); NITRITE, URINE NEGATIVE (NEGATIVE); PROTEIN,URINE TRACE mg/dl (NEGATIVE); UGLUCOSE NEGATIVE (NEGATIVE); UROBILINOGEN,URINE 0.2 EU/dL (0.2)
[2022-10-04 09:34] LABS: BACTERIA,URINE Few /HPF (None Seen); HYALINE CASTS, URINE Many /LPF (None Seen); SQUAMOUS EPITHELIAL CELL,UR Many /HPF (None Seen)
--- NOTE | 2022-10-04 12:18 | NUR ---
halie gonzalez engine manager called for crisis eval. on phone w/ dr narvaez about plan of care.
--- NOTE | 2022-10-04 12:34 | NUR ---
FAXED CLINICALS TO [facility] [phone]
--- NOTE | 2022-10-04 16:46 | NUR ---
CLINICALS REFAXED TO [facility] [phone].
--- NOTE | 2022-10-04 18:19 | NUR ---
ACCEPTED AT [facility] UNDER DR SAMI JACOBO FOR REPORT [phone] SO WILL ARRANGED TRANSPORT
--- NOTE | 2022-10-04 18:27 | NUR ---
CALLED [facility] FOR TRANSPORT ETA [phone] AND NO LONGER ACCEPTING MEDICAL PER CHRISTIANO.
--- NOTE | 2022-10-04 18:33 | NUR ---
[facility] CALLED FOR TRANSPORT ETA [id number]
--- NOTE | 2022-10-04 18:37 | NUR ---
REPORT GIVEN TO RYLAN ROMO FOR CONTINUITY OF CARE.
--- NOTE | 2022-10-04 19:50 | NUR ---
[facility] AT BED SIDE TO CASTING TRUCKER THE PT
[2022-10-04 19:53] VITALS: BP 145/66
--- NOTE | 2022-10-04 19:54 | NUR ---
patient picked up by private ambulance going to [place] in no distress.
== END 2022-10-04 19:54 ==
LOC: ER 08:16
DX: R46.1 Bizarre personal appearance (principal); I10 Essential (primary) hypertension; G43.909 Migraine, unspecified, not intractable, without status migrainosus; Z20.822 Contact with and (suspected) exposure to COVID-19; Z59.00 Homelessness unspecified
CPT/HCPCS: 99285; 85025; 80048; 87086; 80076; 81001; 36415; 87426; 80143; 80320; 80307; C9803; G0480

== ENCOUNTER 2023-04-22 09:31 | Emergency (ER) | payer OTHER ==
[~2023-04-22] VITALS: Ht 175.3 cm; Wt 88.5 kg
[2023-04-22 09:42] VITALS: BP 134/78; TEMP 98.1; O2SAT 98
[2023-04-22] MEDS ORDERED: ITCH TOP (10:16)
== END 2023-04-22 10:23 | disposition home or self-care (01) ==
LOC: ER 09:40
DX: S60.862A Insect bite (nonvenomous) of left wrist, initial encounter (principal); S60.861A Insect bite (nonvenomous) of right wrist, initial encounter; L29.9 Pruritus, unspecified; I10 Essential (primary) hypertension; G43.909 Migraine, unspecified, not intractable, without status migrainosus; F31.9 Bipolar disorder, unspecified; Z59.00 Homelessness unspecified; W57.XXXA Bitten or stung by nonvenomous insect and other nonvenomous arthropods, initial encounter; Y93.89 Activity, other specified; Y92.89 Other specified places as the place of occurrence of the external cause; Y99.8 Other external cause status

== ENCOUNTER 2023-05-15 14:50 | Emergency (ER) | payer OTHER ==
[~2023-05-15] VITALS: Ht 177.8 cm; Wt 82.6 kg
[~2023-05-15 14:50] MED LIST changes: +ITCH TOP
[2023-05-15] MEDS ORDERED: ACETAMINOPHEN ES 500 MG TABLET ONE (15:51)
[2023-05-15] MEDS ORDERED: ACETAMINOPHEN ES 500 MG TABLET PO ONE (16:00)
[2023-05-15 16:03] LABS: BASOPHILS % (AUTO) 0.4 % (0.0-2.0); EOSINOPHILS % (AUTO) 0.3 % (0.0-6.0); HEMATOCRIT 40 % (39-51); LYMPHOCYTES # (AUTO) 1.4 K/uL (0.8-4.8); LYMPHOCYTES % (AUTO) 27.8 % (20.0-44.0); MEAN CORPUSCULAR HEMOGLOBIN 26 PG (26.0-33.0); MEAN CORPUSCULAR HGB CONC 33 g/dl (31.0-36.0); MEAN CORPUSCULAR VOLUME 78 fL (80-96); MONOCYTES # (AUTO) 0.3 K/uL (0.1-1.30); NEUTROPHILS # (AUTO) 3.4 K/uL (1.8-8.9); NEUTROPHILS % (AUTO) 65.5 % (43.0-81.0); PLATELET COUNT (AUTO) 219 K/uL (150-450); RED BLOOD CELL COUNT(AUTO) 5.09 MIL/uL (4.5-6.0); RED CELL DISTRIBUTION WIDTH 15.3 % (11.5-15.0); WHITE BLOOD COUNT (AUTO) 5.2 K/uL (4.3-11.0)
[2023-05-15 16:18] LABS: CALCIUM, SERUM 9.2 mg/dL (8.5-10.1); CREATININE 0.9 mg/dL (0.6-1.3); POTASSIUM 4.3 mmol/L (3.5-5.1)
[2023-05-15 16:25] LABS: ALBUMIN 4.1 g/dL (3.4-5.0); BILIRUBIN,TOTAL 0.6 mg/dL (0.2-1.0); TOTAL PROTEIN, SERUM 7.8 g/dL (6.4-8.2)
[2023-05-15] MEDS ORDERED: HYDROCHLOROTHIAZIDE 25 MG TABLET ONE (17:35)
[2023-05-15] MEDS ORDERED: HYDROCHLOROTHIAZIDE 25 MG TABLET PO ONE (18:00)
[2023-05-15] MEDS ORDERED: HYDR25TA4 PO (18:15)
[2023-05-15] MEDS ORDERED: DIPH28.34 TP (18:15)
[2023-05-15] MEDS ORDERED: ACET-868 PO (18:20)
[2023-05-15 18:49] VITALS: BP 150/100; TEMP 97.9; O2SAT 99
== END 2023-05-15 18:50 | disposition home or self-care (01) ==
LOC: ER 15:11
DX: S60.862A Insect bite (nonvenomous) of left wrist, initial encounter (principal); S60.861A Insect bite (nonvenomous) of right wrist, initial encounter; S00.36XA Insect bite (nonvenomous) of nose, initial encounter; R19.7 Diarrhea, unspecified; I10 Essential (primary) hypertension; F31.9 Bipolar disorder, unspecified; G43.909 Migraine, unspecified, not intractable, without status migrainosus; Z59.00 Homelessness unspecified; W57.XXXA Bitten or stung by nonvenomous insect and other nonvenomous arthropods, initial encounter; Y93.89 Activity, other specified; Y92.89 Other specified places as the place of occurrence of the external cause; Y99.8 Other external cause status
CPT/HCPCS: 36415; 70450-TC; 80053-TC; 85025-TC